=== PATIENT | male | born 1970 | race Caucasian/White ===

== ENCOUNTER 2020-10-18 20:39 | Emergency (ER) | payer OTHER ==
[~2020-10-18 20:39] MED LIST: ALPRAZOLAM0.5 MG PO; ELIQUIS 5 MG TAB5 MG PO; NORCO 10-325 T1 EACH PO
[2020-10-18 21:14] LABS: HEMOGLOBIN 12.8 gm/dl (14.0-17.5); RED BLOOD COUNT 4.17 M/UL (4.20-5.50); WHITE BLOOD COUNT 25.8 K/UL (4.5-11.0)
[2020-10-18 21:28] LABS: BUN/CREATININE RATIO 10 (0-10)
== END 2020-10-19 04:30 | disposition short-term general hospital (02) ==
LOC: ER1 20:39
PROVIDERS: Family Medicine
DX: N45.2 Orchitis (principal); M54.5 Low back pain; R10.9 Unspecified abdominal pain; E11.9 Type 2 diabetes mellitus without complications
CPT/HCPCS: 71045; 76870; 80053; 81001; 82550; 82553; 83605; 84484; 85025; 85610; 87040; 87077; 87086; 87186; 93005; 96365; 96375; 96376; 99285; J2270; J2405; Q9967

== ENCOUNTER 2021-03-23 19:48 | Emergency (ER) | payer OTHER ==
[~2021-03-23] VITALS: Ht 190.5 cm; Wt 131.5 kg
== END 2021-03-23 21:58 | disposition home or self-care (01) ==
LOC: ER1 19:48
DX: Z23 Encounter for immunization (principal); U07.1 COVID-19; I25.10 Atherosclerotic heart disease of native coronary artery without angina pectoris; I25.2 Old myocardial infarction; E78.5 Hyperlipidemia, unspecified; I11.9 Hypertensive heart disease without heart failure; Z79.01 Long term (current) use of anticoagulants
CPT/HCPCS: 71045; 99283; M0243

== ENCOUNTER 2022-02-10 18:37 | Emergency (ER) | payer OTHER ==
[2022-02-10 19:51] LABS: HEMOGLOBIN 14.4 gm/dl (14.0-17.5); RED BLOOD COUNT 4.51 M/UL (4.20-5.50); WHITE BLOOD COUNT 12.3 K/UL (4.5-11.0)
[2022-02-10 20:11] LABS: BUN/CREATININE RATIO 9 (0-10)
[2022-02-10] MEDS ORDERED: OMNICEF 300 MG300 MG PO (23:05)
== END 2022-02-10 23:33 | disposition home or self-care (01) ==
LOC: ER1 18:37
PROVIDERS: Emergency Medicine
DX: N30.90 Cystitis, unspecified without hematuria (principal); I11.9 Hypertensive heart disease without heart failure; E78.5 Hyperlipidemia, unspecified
CPT/HCPCS: 80053; 81001; 83690; 85025; 87077; 87086; 87186; 96374; 99284; J0696; Q9967